=== PATIENT | male | born 1980 | race Caucasian/White ===

== ENCOUNTER 2016-09-25 09:32 | Observation (INO) | payer MEDICAID, OTHER ==
[2016-09-25] VITALS (39 sets, daily range): BP systolic 108–191; BP diastolic 60–91; PULSE 92–128; RESP 12–25; Ht 175.3 cm; Wt 131.0 kg
[~2016-09-25] VITALS: Ht 175.3 cm; Wt 131.0 kg
[2016-09-25] MEDS ORDERED: CEFAZOLIN 2 GM/50 ML (PMX) 50 ML IVPB ONE (10:00)
[2016-09-25] MEDS ORDERED: LISI10TA2 PO (10:28)
[2016-09-25] MEDS ORDERED: METF1000 PO (10:28)
[2016-09-25] MEDS ORDERED: GLIP-95 PO (10:28)
[2016-09-25] MEDS ORDERED: AMLO-218 PO (10:29)
--- NOTE | 2016-09-25 11:08 | HPN ---
Date/Time of Note Date/Time of Note DATE: 09/25/16 TIME: 11:07 Interval H&P Admission Note Pt. seen H&P reviewed: No system changes JON ALVARADO MD Sep 25, 2016 11:07
[2016-09-25] MEDS ORDERED: POLYMYXIN/BACITRACIN 1L IRRIG ONE (11:44)
[2016-09-25] MEDS ORDERED: BUPIVACAINE 0.25%/EPI (SDV) 30 ML INJ ONE (11:46)
[2016-09-25] MEDS ORDERED: THROMBIN 5000 UNIT VIAL ONE (11:46)
[2016-09-25] MEDS ORDERED: SURGIFOAM POWDER 1 GM KIT ONE (11:46)
[2016-09-25] MEDS ORDERED: PROPOFOL 20 ML ONE (12:01)
[2016-09-25] MEDS ORDERED: EPHEDrine SULFATE 50 MG/5 ML SYG ONE (12:01)
[2016-09-25] MEDS ORDERED: ROCURONIUM 50 MG INJ ONE ×2 (12:01→13:29)
[2016-09-25] MEDS ORDERED: DEXAMETHASONE 4 MG/ML 1 ML INJ ONE (12:01)
[2016-09-25] MEDS ORDERED: SUCCINYLCHOLINE CHLORIDE 100 MG/5 ML SYG IV ONE (12:01)
[2016-09-25] MEDS ORDERED: ONDANSETRON 4 MG INJ ONE (12:01)
[2016-09-25] MEDS ORDERED: MIDAZOLAM 1 MG/ML 2 ML INJ ONE (12:01)
[2016-09-25] MEDS ORDERED: CEFAZOLIN 1 GM INJ ONE (12:16)
[2016-09-25] MEDS ORDERED: DIPHENHYDRAMINE 50 MG INJ IV PRN (13:00)
[2016-09-25] MEDS ORDERED: ONDANSETRON 4 MG INJ IV PRN ×2 (13:00→15:30)
[2016-09-25] MEDS ORDERED: hydrALAzine 20 MG INJ IV PRN (13:00)
[2016-09-25] MEDS ORDERED: MEPERIDINE 25 MG INJ IV PRN (13:00)
[2016-09-25] MEDS ORDERED: HYDROmorphONE (0.2 MG/ML) 10ML SYG IV PRN ×2 (13:00)
[2016-09-25] MEDS ORDERED: EPHEDrine SULFATE 50 MG/5 ML SYG IV PRN (13:00)
[2016-09-25] MEDS ORDERED: MIDAZOLAM 1 MG/ML 2 ML INJ IV PRN (13:00)
[2016-09-25] MEDS ORDERED: KETOROLAC 30 MG INJ IV ONE (13:00)
[2016-09-25] MEDS ORDERED: BETAMET NA PHOS/AC(6 MG/ML) 5ML INJ ONE (14:14)
[2016-09-25] MEDS ORDERED: NEOSTIGMINE 3 MG/3 ML SYRINGE ONE (14:31)
[2016-09-25] MEDS ORDERED: GLYCOPYRROLATE 1 MG INJ ONE (14:31)
[2016-09-25] MEDS ORDERED: FENTAnyl 50 MCG/ML VIAL ONE (14:33)
--- NOTE | 2016-09-25 14:58 | RADRPT ---
PROCEDURE: Intraoperative imaging of the lumbar spine with fluoroscopy. CLINICAL INDICATION: Back pain. Intraoperative. TECHNIQUE: 5 images of the lumbar spine were obtained in the operating room with an image intensif ier. No radiologist was in attendance. 13.1 seconds of fluoroscopy time was used. COMPARISON: No prior study is available for comparison. FINDINGS: Images demonstrate surgical instruments overlying the lower lumbar spine. IMPRESSION: 1. Intraoperative imaging of the lumbar spine. RPTAT: QQ .Vishnu Donovan MD, MD Date Time Electronically viewed and signed by .Vishnu Donovan MD, MD on 09/25/2016 14:58 .R/
--- NOTE | 2016-09-25 15:06 | OPR ---
Date/Time of Note Date/Time of Note DATE: 09/25/16 TIME: 15:01 Operative Report Free Text/Dictation DATE OF OPERATION: 09/25/2016 PREOPERATIVE DIAGNOSES: L3-4 severe bilateral spinal stenosis with neurogenic claudication POSTOPERATIVE DIAGNOSES: L3-4 severe bilateral spinal stenosis with neurogenic claudication OPERATION PERFORMED: 1. L3-4 bilateral partial laminectomy, medial facetectomy, and foraminotomy SURGEON: Jon Alvarado MD DEAF INTERPRETER: Fermin Wills MD ANESTHESIA: General endotracheal ESTIMATED BLOOD LOSS: Minimal SURGICAL INDICATION: The patient is a 35 year-old male who presents with an increasing history of bilateral lower extremity pain. The patient was unable to ambulate significant distances secondary to their pain. The patient had failed conservative treatment. Risks, benefits, and alternatives to a decompressive procedure including but not exclusive of risks of bleeding, infection, nerve injury, cauda equina syndrome, iatrogenic instability, dural tear, myocardial infarction, stroke, pulmonary embolism were explained to the patient, and he wished to proceed. DESCRIPTION OF TECHNIQUE: The patient was identified in the preoperative area and taken to the operating room. Rapid induction of general endotracheal anesthesia was performed. Patient was given 2 g of cefazolin for prophylaxis. The patient was then placed in the prone position on the Luis E table with all bony prominences well padded. The back was prepped and draped in usual sterile manner. Using a spinal needle and intraoperative fluoroscopy, the L3-4 level was clearly identified. The skin was injected using 0.25% Marcaine with epinephrine. Longitudinal midline incision was then created using a 10 blade. Further dissection through soft tissue was performed using electrocautery down to the bilateral spinous processes. Dissection was taken down the bilateral side of the lamina and over the facet joint capsule. A self-retaining retractor was applied. Again, intraoperative fluoroscopy confirmed the level. The microscope was brought into use for microdissection. The high-speed bur was used to thin the caudal aspect of the bilateral L3 lamina. Kerrison rongeurs were then used to resect a small portion of the lamina, the medial facet and the bone overlying the foramen bilaterally. Ligamentum flavum was also resected using the Kerrison rongeurs. Care was taken to protect the thecal sac throughout the decompressive procedure. Palpation with a ball-tip probe did not reveal any further stenosis in the central, subarticular, or foraminal areas. The exiting L3 nerve root and traversing L4 nerve roots were both directly visualized and noted to be decompressed. The cephalad and caudad extent of the decompression were also confirmed using ball-tip probes and intraoperative fluoroscopy. The wound was irrigated copiously using normal saline. Meticulous attention was paid toward hemostasis using bipolar cautery and surgifoam. Care was taken to remove all surgifoam prior to wound closure. The fascia was then closed using 0 Vicryl in interrupted fashion over a medium hemovac. Subcutaneous tissue was closed using 2-0 Vicryl in interrupted fashion. Skin was closed using a running 4-0 Monocryl stitch. The wound was dressed using Dermabond, sterile gauze and Tegaderm. The patient was returned to the supine position. They were extubated immediately postoperatively and taken to the recovery room in stable condition. I was physically present and participated in the entire operation from incision to closure. COMPLICATIONS: None. Surgeon: JON ALVARADO MD Licensed Mortgage Loan Officer: FERMIN ERNST MD Anesthesia: general Estimated Blood Loss: 50 - 100 ml's Complications: None Pt Condition Post Procedure: stable Disposition: PACU JON ALVARADO MD Sep 25, 2016 15:06
[2016-09-25] MEDS ORDERED: NALOXONE (0.4 MG/ML) INJ IV PRN (15:30)
[2016-09-25] MEDS ORDERED: NACL 0.9% 3 ML SYG IV SCH (15:30)
[2016-09-25] MEDS ORDERED: PROCHLORPERAZINE 10 MG TAB PO PRN (15:30)
[2016-09-25] MEDS ORDERED: HYDROCODONE/APAP (5/325) TAB PO PRN (15:30)
[2016-09-25] MEDS: FENTAnyl 50 MCG/ML VIAL IV PRN ×3 (15:47→16:57)
[2016-09-25] MEDS: HYDROmorphONE (0.2 MG/ML) 10ML SYG IV PRN ×3 (15:47→16:58)
[2016-09-25] MEDS ORDERED: LABETALOL HCL 20MG INJ IV PRN (17:00)
[2016-09-25] MEDS ORDERED: INSULIN ASPART [NOVOLOG] 3 ML PEN SC ONE (17:00)
[2016-09-25] MEDS ORDERED: GLUCOSE GEL 15 GRAM TUBE PO PRN ×2 (17:30)
[2016-09-25] MEDS ORDERED: GLUCOSE GEL 15 GRAM TUBE BUCCAL PRN (17:30)
[2016-09-25] MEDS ORDERED: GLUCAGON 1 MG INJ IM PRN (17:30)
[2016-09-25] MEDS ORDERED: DEXTROSE 50% 50 ML SYRINGE IV PRN ×2 (17:30)
--- NOTE | 2016-09-25 17:53 | CONS ---
DATE OF ADMISSION: 09/25/2016 DATE OF CONSULTATION: 09/25/2016 REQUESTING PHYSICIAN: Beny Grover MD REASON FOR CONSULTATION: Medical management postoperatively. HISTORY OF PRESENT ILLNESS: This is a very pleasant 35-year-old gentleman with past medical history of diabetes mellitus, hypertension, morbid obesity, low back pain who has been having increased his tory of bilateral lower extremity pain. The patient has been unable to ambulate secondary to the lo wer back pain. The patient has failed conservative treatment, such as pain medication, physical the rapy, and was seen and evaluated by the orthopedic surgeon. After discussing the risks, benefits, a nd alternatives to decompression procedure including bleeding, infection, nerve injury, and other ri sks, patient agreed to proceed with surgical intervention after signing consent on 09/25/2016. The patient was taken to OR for L3-L4 bilateral partial laminectomy, medial fasciectomy, and foraminotom y and was taken to recovery in stable condition. The medical team has been consulted. At this time , the patient denies any fever, chills, weight gain, weight loss, anorexia. No chest pain, palpitat ions, edema, orthopnea. No change in visual acuity, diplopia, photophobia. No headache, dizziness, lightheadedness. No numbness or weakness or change in the sensory or motor. The patient denies torrez ving any discomfort at this time. PAST MEDICAL AND SURGICAL HISTORY: As above per HPI. MEDICATIONS: 1. Amlodipine. 2. Glipizide. 3. Lisinopril. 4. Metformin. ALLERGIES: NO KNOWN DRUG ALLERGIES. FAMILY HISTORY: Noncontributory. SOCIAL HISTORY: Negative x3 for smoking, alcohol, illicit drugs. REVIEW OF SYSTEMS: As above per HPI, otherwise 12 review of systems was found to be negative. Posi tive for low back pain. Denies any lower extremity numbness or tingling. Denies any fever, chills, weight gain, weight loss anorexia. No chest pain, palpitation, orthopnea. No abdominal pain or an y discomfort. PHYSICAL EXAMINATION: VITAL SIGNS: Temperature 98, pulse 105, respirations 16, blood pressure 171/88, oxygen 98% in room air. GENERAL APPEARANCE: The patient is lying in bed comfortably without any acute distress. He is awak e, alert, oriented. He is able to answer my questions properly. EYES AND ENT: Conjunctivae and lids are normal. Pupils are normal. Extraocular normal. Hearing g rossly normal. Lips are normal. Oral mucosa is moist. NECK: Supple. Trachea is midline. No lymphadenopathy. RESPIRATORY: Effort is normal. Clear to auscultation bilaterally. CARDIOVASCULAR: Normal S1, S2. Regular rhythm and rate. No murmur, no bruits, no edema. Peripher al pulses, radial pulses palpable. Cap refill is normal. CHEST: Normal expansion of thorax during inspiration. GASTROINTESTINAL: Abdomen is soft, nontender, nondistended. Bowel sounds present. No guarding, no rebound. GENITOURINARY: Deferred. MUSCULOSKELETAL: Upper and lower extremities within normal limits. Full range of motion. NEUROLOGIC: Cranial nerves II through XII are grossly intact. PSYCHIATRIC: Normal judgment and insight. Alert and oriented x3. Mood and affect is normal. BACK: Lumbosacral, there is a drain in place. It is intact. Surgical site is dry and clean. LABORATORY WORK: Glucose 246. INR 1.0. Hemoglobin 16, hematocrit 43, platelets 271. Albumin 4.8. Alkaline phosphatase 96, ALT 82, AST 23. Calcium 10.2, bicarbonate 30, chloride 99, creatinine 0. 86, GFR 128, potassium 4.3, sodium 137, BUN 12. ASSESSMENT AND PLAN: 1. L3-L4 severe bilateral spinal stenosis with neurologic claudication. The patient is status post L3-L4 bilateral partial laminectomy, medial fasciectomy, and foraminotomy, status post IV antibioti cs via cefazolin. Continue post-surgical care, physical therapy, and pain medication as per orthope dic surgeon recommendation. 2. Essential hypertension. Restart the patient's amlodipine and CHRISTIANO inhibitor. 3. Diabetes mellitus. Place the patient on insulin sliding scale and low-carbohydrate diet. Place patient on Lantus and continue metformin. 4. For deep venous thrombosis prophylaxis, on sequential compression devices. Refrain from using a ny pharmacology deep vein thrombosis prophylaxis secondary to postoperative. 5. We will continue to monitor patient closely. Further recommendations, management, and treatment as per the clinical course. Total time was spent for evaluation of patient and consultation note: 40 minutes. Dictated By: MARILYN CARTER/NTS Conf#: [id number] DID#: [id number]
[2016-09-25] MEDS: INSULIN ASPART [NOVOLOG] 3 ML PEN SC SCH ×2 (17:55→21:00)
[2016-09-25] MEDS: LISINOPRIL 10 MG TAB PO SCH (18:26)
[2016-09-25] MEDS: CEFAZOLIN 1 GM/50 ML (PMX) 50 ML IVPB SCH (18:27)
[2016-09-25] MEDS: AMLODIPINE 10 MG TAB PO SCH (18:27)
[2016-09-25] MEDS ORDERED: INSULIN GLARGINE [LANtus] 3 ML PEN SC SCH (20:00)
[2016-09-25] MEDS: HYDROmorphONE 1 MG/ML SYG IV PRN (22:07)
[2016-09-25] MEDS ORDERED: metFORMIN 500 MG TAB PO SCH (22:40)
[2016-09-26] MEDS: CEFAZOLIN 1 GM/50 ML (PMX) 50 ML IVPB SCH ×3 (00:14→11:46)
[2016-09-26] MEDS: HYDROCODONE/APAP (5/325) TAB PO PRN ×3 (00:14→11:47)
[2016-09-26] MEDS ORDERED: ACCUCHECK XX SCH (02:00)
[2016-09-26] MEDS: HYDROmorphONE 1 MG/ML SYG IV PRN (04:25)
[2016-09-26 05:18] LABS: HEMATOCRIT 40.6 % (42.0-52.0); HEMOGLOBIN 13.8 g/dl (14.0-18.0)
[2016-09-26 06:09] LABS: POTASSIUM 3.9 mmol/L (3.5-5.1)
[2016-09-26 06:11] LABS: CREATININE 0.75 mg/dl (0.61-1.24)
[2016-09-26 06:12] LABS: CALCIUM 8.6 mg/dl (8.4-10.2)
[2016-09-26] MEDS ORDERED: metFORMIN 500 MG TAB PO SCH (07:50)
[2016-09-26] MEDS: INSULIN ASPART [NOVOLOG] 3 ML PEN SC SCH ×2 (08:33→11:49)
[2016-09-26] MEDS: AMLODIPINE 10 MG TAB PO SCH (08:34)
[2016-09-26] MEDS: LISINOPRIL 10 MG TAB PO SCH (08:35)
[2016-09-26 09:05] VITALS: BP 104/62; RESP 20
--- NOTE | 2016-09-26 09:37 | PDOCDIS ---
Discharge Instructions CONDITION Patient Condition: Good HOME CARE INSTRUCTIONS: Diet Instructions: Reduced Calorie ACTIVITY: Activity Restrictions: Avoid heavy lifting FOLLOW UP/APPOINTMENTS Appointments 2 weeks with JON Layton MD Sep 26, 2016 09:37
[2016-09-26] MEDS ORDERED: HYDR-3498 PO (09:39)
--- NOTE | 2016-09-26 15:30 | CONS ---
Date/Time of Note Date/Time of Note DATE: 09/26/16 TIME: 15:28 Assessment/Plan Assessment/Plan Chief Complaint/Hosp Course ASSESSMENT AND PLAN: 1. L3-L4 severe bilateral spinal stenosis with neurologic claudication. The patient is status post L3-L4 bilateral partial laminectomy, medial fasciectomy, and foraminotomy, status post IV antibiotics via cefazolin. Continue physical therapy, and pain medication as per orthopedic surgeon recommendation. 2. Essential hypertension. Continue amlodipine and CHRISTIANO inhibitor. 3. Diabetes mellitus. Continue Lantus and continue metformin. Low-carb diet 4. For deep venous thrombosis prophylaxis, on sequential compression devices. Refrain from using any pharmacology deep vein thrombosis prophylaxis secondary to postoperative. Patient is medically stable to be discharged home with a close follow-up with orthopedic surgeon Problems: Consultation Date/Type/Reason Admit Date/Time Sep 25, 2016 at 15:10 Initial Consult Date 09/25/16 24 HR Interval Summary Free Text/Dictation Patient denies of any chest pain or shortness of breath Denies of any back pain Lumbar drain has been discontinued Exam/Review of Systems Vital Signs Vitals Vital Signs Date Time Temp Pulse Resp B/P Pulse Ox O2 Delivery O2 Flow Rate FiO2 09/26/16 09:05 98.0 80 20 104/62 95 09/25/16 19:00 Nasal Cannula 2.0 Intake and Output 09/25/16 09/25/16 09/26/16 15:00 23:00 07:00 Intake Total 850 ml 4900 ml Output Total 50 ml 2080 ml Balance -50 ml 850 ml 2820 ml Exam General: The patient is well-developed, Not in acute distress. HEENT: Atraumatic, normocephalic. The pupils are equal and round . Neck: Supple with full range of motion. Chest: Normal expansion of the thorax during inspiration Lungs: Clear to auscultation bilaterally Heart: Normal S1-S2, Regular rhythm and rate. Abdomen: Soft , nontender, nondistended , bowel sounds are present. Extremities: Normal to inspection, no edema no cyanosis Neurologic: Normal mental status,The patient is awake, alert and oriented . Lumbosacral: Surgical site is dry and clean Results Result Diagram: 09/26/16 0420 09/26/16 0420 Results 24 hrs Laboratory Tests Test 09/25/16 16:21 09/25/16 19:23 09/25/16 20:57 09/26/16 01:59 Bedside Glucose 246 H 230 H 224 H Creatinine 0.66 Test 09/26/16 04:20 09/26/16 05:40 09/26/16 07:50 09/26/16 11:36 Anion Gap 16 Blood Urea Nitrogen 12 Calcium Level 8.6 Carbon Dioxide Level 27 Chloride Level 97 Creatinine 0.75 Glucose Level 229 H Hematocrit 40.6 L Hemoglobin 13.8 L Potassium Level 3.9 Sodium Level 136 Bedside Glucose 226 H 221 H 194 MARILYN LONDONO MD Sep 26, 2016 15:30
== END 2016-09-26 14:50 | disposition home or self-care (01) ==
LOC: SDS 09:32 → UNDOADMOB 15:10 → REC 15:10 → MS1 15:10 → SDS 15:10 → MS1 16:40 → REC 16:40
PROVIDERS: ADMIT Orthopaedic Surgery; ATTEND Orthopaedic Surgery
DX: M48.06 Spinal stenosis, lumbar region (principal); I10 Essential (primary) hypertension; E11.9 Type 2 diabetes mellitus without complications; E66.9 Obesity, unspecified; Z68.41 Body mass index [BMI] 40.0-44.9, adult
CPT/HCPCS: 63047; 72110; 80048; 82565; 82962; 85014; 85018; 96372; 96374; 96375; 96376; 97164; J0330; J0690; J0702; J1100; J1170; J1815; J1885; J2175; J2250; J2405; J3010; Z7500; Z7512; Z7610; 99217; G0378; J2710

== ENCOUNTER 2018-10-12 06:06 | Emergency (ER) | payer OTHER ==
[~2018-10-12] VITALS: Ht 175.3 cm; Wt 126.4 kg
[~2018-10-12 06:06] MED LIST: ACET-141 PO; AMLO-218 PO; AMPI500C9 PO; GABA300C16 PO; GLIP10TA14 PO; LEVEM SQ; LISI10TA2 PO; METF100010 PO; WORK NOTE
[2018-10-12 06:12] VITALS: Ht 175.3 cm; Wt 126.4 kg
[2018-10-12] MEDS ORDERED: MECLIZINE 12.5 MG TAB PO ONE (07:00)
[2018-10-12] MEDS ORDERED: ASPI-903 PO (08:07)
[2018-10-12] MEDS ORDERED: HYDROmorphONE 1 MG/ML SYG IV STA (08:07)
[2018-10-12] MEDS ORDERED: METOCLOPRAMIDE 10 MG INJ IV STA (08:07)
[2018-10-12] MEDS ORDERED: DIPHENHYDRAMINE 50 MG INJ IV STA (08:07)
[2018-10-12] MEDS ORDERED: IBUP-1542 PO (10:37)
[2018-10-12] MEDS ORDERED: MECL12.574 PO (10:37)
[2018-10-12] MEDS ORDERED: HYDR-3980 PO (10:37)
--- NOTE | 2018-10-12 10:43 | ERD ---
ER Documentation Chief Complaint Chief Complaint DIZZINESS X 1 WEEK, HEADACHE HPI This is a 37-year-old male who is here for vertigo. The patient states that for nearly a week now he has had spinning of the room when he moves his head that will hit him suddenly. No nausea vomiting no focal neurological complaints. He also complains of a pulsatile right temporal headache. No photophobia phonophobia or worsening with position change. No fever neck pain. The patient says if he remains still he gets better but turning his head makes it start. No ringing in the ears or hearing loss ROS All systems reviewed and are negative except as per history of present illness. Medications Home Meds Active Scripts Ibuprofen* (Motrin*) 600 Mg Tab, 600 MG PO Q6, #30 TAB Prov:SONG COBIAN. DO 10/12/18 Hydrocodone/Acetaminophen (Newton 10-325 Tablet) 1 Each Tablet, 1 TAB PO Q6H PRN for PAIN, #7 TAB Prov:KANIKA COBIANSTRAGHAVENDRAS A. DO 10/12/18 Meclizine Hcl* (Antivert*) 12.5 Mg Tab, 25 MG PO Q6H PRN for DIZZINESS, #20 TAB Prov:LEJESSICAOS,KANIKASTOLOS A. DO 10/12/18 [Work Note] No Conflict Check PLEASE EZCUSE MR.ROGELIO RAM ATTEDNING WORK FROM 09/29/2018 TO 10/04/2018 DUE TO HIS MEDICAL CONDITION. Prov:ZENA MEDEIROS NP 10/02/18 Ampicillin* (Ampicillin*) 500 Mg Cap, 500 MG PO QID for 5 Days, #20 CAP Prov:ZENA MEDEIROS V. PERSONAL SECRETARY 10/02/18 Reported Medications Aspirin* (Aspirin* Chew) 81 Mg Tab.chew, 81 MG PO DAILY, TAB.CHEW 10/12/18 Acetaminophen* (Acetaminophen*) 500 MG Extra Strength Tablet, 500 MG PO Q4H PRN for PAIN AND OR ELEVATED TEMP, TAB 09/29/18 Insulin Detemir (Levemir) 100 Unit/1 Ml Vial, 34 SQ QHS 09/29/18 Gabapentin* (Gabapentin*) 300 Mg Capsule, 300 MG PO BID, #60 CAP 09/29/18 Amlodipine Besylate* (Norvasc*) 10 Mg Tablet, 10 MG PO DAILY, TAB 09/25/16 Metformin Hcl* (Metformin Hcl*) 1,000 Mg Tablet, 1000 MG PO WITH BREAKFAST DINNE, #30 TAB 09/25/16 Lisinopril* (Lisinopril*) 10 Mg Tablet, 10 MG PO DAILY, #30 TAB 09/25/16 Glipizide* (Glipizide*) 10 Mg Tablet, 10 MG PO BID WITH MEALS, TAB 09/25/16 Allergies Allergies: Coded Allergies: No Known Allergy (Unverified , 10/12/18) PMhx/Soc History of Surgery: Yes (BACK SURGERY 2YEARS AGO. BOTH EYES SX-) Anesthesia Reaction: No Hx Neurological Disorder: No Hx Respiratory Disorders: No Hx Cardiac Disorders: Yes (HTN) Hx Psychiatric Problems: No Hx Miscellaneous Medical Probl: Yes (DM) Hx Alcohol Use: No Hx Substance Use: No Hx Tobacco Use: No Smoking Status: Never smoker FmHx Family History: No coronary disease Physical Exam Vitals Vital Signs Date Temp Pulse Resp B/P (MAP) Pulse Ox O2 O2 Flow FiO2 Time Delivery Rate 10/12/18 77 17 116/87 97 Room Air 09:17 (97) 10/12/18 99 11 123/98 100 07:16 (106) 10/12/18 99.5 104 16 173/101 98 06:12 (125) Physical Exam Const: Well-developed, well-nourished Head: Atraumatic, normocephalic Eyes: Normal Conjunctiva, PERRLA, EOMI, normal sclera, no nystagmus ENT: Normal External Ears, Nose and Mouth, moist mucus membranes. Neck: Full range of motion. No meningismus, no lymphadenopathy. Resp: Clear to auscultation bilaterally, no wheezing, rhonchi, rales Cardio: Regular rate and rhythm, no murmurs, S1 S2 present Abd: Soft, non tender x 4, non distended. Normal bowel sounds, no guarding or rebound, no pulsitile abdominal masses or bruits Skin: No petechiae or rashes, no ecchymosis , no maculopapular rash Back: No midline or flank tenderness Ext: No cyanosis, or edema, FROM x 4, normal inspection, neurovascularly intact x 4 Neur: Awake and alert, STR 5/5 x 4, sensation intact x 4, no focal findings, cerebellum intact, movement of the head causes vertigo Psych: Normal Mood and Affect Result Diagram: 10/12/18 0653 10/12/18 0653 Results 24 hrs Laboratory Tests Test 10/12/18 06:53 White Blood Count 8.5 10^3/ul Red Blood Count 5.48 10^6/ul Hemoglobin 15.0 g/dl Hematocrit 45.1 % Mean Corpuscular Volume 82.3 fl Mean Corpuscular Hemoglobin 27.4 pg Mean Corpuscular Hemoglobin Concent 33.3 g/dl Red Cell Distribution Width 12.6 % Platelet Count 307 10^3/UL Mean Platelet Volume 10.4 fl Immature Granulocytes % 0.200 % Neutrophils % 62.9 % Lymphocytes % 26.2 % Monocytes % 7.5 % Eosinophils % 2.7 % Basophils % 0.5 % Nucleated Red Blood Cells % 0.0 /100WBC Immature Granulocytes # 0.020 10^3/ul Neutrophils # 5.3 10^3/ul Lymphocytes # 2.2 10^3/ul Monocytes # 0.6 10^3/ul Eosinophils # 0.2 10^3/ul Basophils # 0.0 10^3/ul Nucleated Red Blood Cells # 0.0 10^3/ul Sodium Level 139 mmol/L Potassium Level 4.4 mmol/L Chloride Level 101 mmol/L Carbon Dioxide Level 30 mmol/L Anion Gap 8 Blood Urea Nitrogen 11 mg/dl Creatinine 0.74 mg/dl Est Glomerular Filtrat Rate mL/min > 60 mL/min Glucose Level 219 mg/dl Calcium Level 9.4 mg/dl Current Medications Medications Dose Sig/Husam Start Time Status Last (Trade) Ordered Route PRN Stop Time Admin Dose Reason Admin Meclizine 25 mg ONCE ONCE 10/12/18 DC 10/12/18 HCl PO 07:00 06:59 (Antivert) 10/12/18 07:01 10 mg ONCE STAT 10/12/18 DC 10/12/18 Metoclopramid IV 08:07 08:34 e HCl 10/12/18 08:09 (Reglan) 1 mg ONCE STAT 10/12/18 DC 10/12/18 Hydromorphone IV 08:07 08:34 HCl 10/12/18 08:09 (Dilaudid) 25 mg ONCE STAT 10/12/18 DC 10/12/18 Diphenhydrami IV 08:07 08:34 ne HCl 10/12/18 08:09 (Benadryl) Procedures/MDM MR #: [id number] DOS: 10/12/18 0637 Ordering MD: SONG COBIAN DO Location: E/R Room/Bed: PROCEDURE: CT Brain without contrast. CLINICAL INDICATION: Headache TECHNIQUE: A CT of the brain was performed utilizing axial imaging from the skull base through the vertex without IV contrast. Multiplanar reformatted images were made. Images were reviewed on a PACS workstation. CTDIvol: 37.48 mGy DLP: 634.23 mGycm DICOM images are available. One or more of the following dose reduction techniques were utilized: 1.) Automated exposure control 2.) Adjustment of the mA +/- kV according to patient's size 3.) Use of iterative reconstruction technique. COMPARISON: None FINDINGS: CALVARIUM: Regional bones are intact. SINUSES: Paranasal sinuses and mastoid air cells are clear. BRAIN: There is no evidence of intracranial hemorrhage. Prominence of ventricles and cisterns is normal for age. Rodriguez - white differentiation is preserved and there is no evidence of an acute or subacute territorial infarction. No intracranial mass or mass effect. IMPRESSION: Negative unenhanced head CT. RPTAT: [facility] Physician Korina Date Time Electronically viewed and signed by Physician Korina on 10/12/2018 07:04 xB/ CC: SONG COBIAN DO [id number] Patient's head CT is negative. The patient received migraine cocktail as well as some Antivert. He is feeling better. I feel his presentation is clearly peripheral vertigo. Follow-up with primary Patient feels much better at this time, and vital signs are normal, symptoms have improved. I did give strict instructions to return to the ED if symptoms continue or worsen, patient will otherwise follow-up with primary care physician. Patient understood instructions and agreed to plan. Disclaimer: Inadvertent spelling and grammatical errors are likely due to EHR/dictation software use and do not reflect on the overall quality of patient care. Also, please note that the electronic time recorded on this note does not necessarily reflect the actual time of the patient encounter. Departure Diagnosis: Primary Impression: Vertigo Additional Impression: Headache Headache type: unspecified Headache chronicity pattern: unspecified pattern Intractability: not intractable Qualified Codes: R51 - Headache Condition: Stable Patient Instructions: Self-Care for Headaches, Vertigo, Unspecified SONG COBIAN DO Oct 12, 2018 10:43
[2018-10-12 10:47] VITALS: BP 122/90; PULSE 84; RESP 17
== END 2018-10-12 10:48 | disposition home or self-care (01) ==
LOC: E/R 06:06
DX: R42 Dizziness and giddiness (principal); R51 Headache; I10 Essential (primary) hypertension; E11.9 Type 2 diabetes mellitus without complications; Z79.82 Long term (current) use of aspirin; Z79.4 Long term (current) use of insulin
CPT/HCPCS: 36415; 70450; 80048; 85025; 93005; 96374; 96375; J1170; J1200; J2765; Z7502; Z7610